=== PATIENT | female | born 1950 | race Caucasian/White ===

== ENCOUNTER 2017-06-27 08:59 | Emergency (ER) | payer OTHER, BC ==
[~2017-06-27] VITALS: Ht 165.1 cm; Wt 68.0 kg
[2017-06-27 09:05] VITALS: BP_SYST 149
[2017-06-27] MEDS ORDERED: KETOROLAC TROMETHAMINE 60 MG/2 ML VIAL IM ONE (10:45)
[2017-06-27 11:19] VITALS: BP_SYST 131
== END 2017-06-27 11:19 | disposition home or self-care (01) ==
LOC: SED 08:59
DX: S39.012A Strain of muscle, fascia and tendon of lower back, initial encounter (principal); M25.552 Pain in left hip; Z98.51 Tubal ligation status; W01.0XXA Fall on same level from slipping, tripping and stumbling without subsequent striking against object, initial encounter; Y93.89 Activity, other specified; Y92.89 Other specified places as the place of occurrence of the external cause; Y99.2 Volunteer activity
CPT/HCPCS: 72110; 72170; 73502; 96372; 99284; J1885